=== PATIENT | female | born 1980 | race Caucasian/White ===

== ENCOUNTER 2019-05-20 18:18 | Emergency (ER) | payer OTHER ==
[~2019-05-20] VITALS: Ht 157.5 cm; Wt 56.7 kg
[2019-05-20 18:51] VITALS: BP_SYST 140
[2019-05-20 21:30] VITALS: BP_SYST 138
== END 2019-05-20 21:30 | disposition home or self-care (01) ==
LOC: SED 18:18
DX: R51 Headache (principal)
CPT/HCPCS: 70450-TC; 81025; 99284